=== PATIENT | female | born 2000 | race Caucasian/White ===

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

== ENCOUNTER 2018-01-24 07:18 | Emergency (ER) | payer OTHER ==
[2018-01-24] MEDS ORDERED: NS 0.9% 1000 ML* 1,000 ML IV ONE (07:32)
--- NOTE | 2018-01-24 07:50 | ED ---
Syncope/Near Syncope - HPI Summary HPI Summary: Pt is 17 y/o F who presents to ED s/p syncope this morning. For the past week she has been very stressed and on average slept 3 hours a night this week. Last night she also got about 3 hours of sleep and went to bed feeling out of it and notes that her blood sugar was high. This morning she was walking in her living room when she felt sweaty and like her heart was racing. Pt lost consciousness for an undetermined time since the episode was unwitnessed. She woke up on the floor on her right side and checked her blood sugar at this time and notes that it was 99. Pt also notes headache, blurred vision, dizziness, and chills. Denies fever or chest pain. She is not sure if she injured her head from the fall but denies external head injury. PMHx of syncopal episode once last year and 5 concussions from soccer. - History Of Current Complaint Chief Complaint: EDSyncope Time Seen by Provider: 01/24/18 07:29 Hx Obtained From: Patient Onset/Duration: Sudden Onset, Resolved Context: Unwitnessed, Loss Of Consciousness Associated Head Trauma: No Associated Signs And Symptoms: Chest Pain - NEGATIVE, Diaphoresis, Dizzy, Head Trauma (Recent) - NEGATIVE, Headache - Allergies/Home Medications Allergies/Adverse Reactions: Allergies Allergy/AdvReac Type Severity Reaction Status Date / Time No Known Allergies Allergy Verified 07/18/17 08:54 PMH/Surg Hx/FS Hx/Imm Hx Endocrine/Hematology History: Reports: Hx Diabetes - Type 1. Well Controlled Respiratory History: Reports: Hx Pneumonia Sensory History: Denies: Hx Contacts or Glasses Neurological History: Denies: Hx Headaches, Hx Seizures Psychiatric History: Denies: Hx Substance Abuse Infectious Disease History: No Infectious Disease History: Denies: Traveled Outside the [place] in Last 30 Days - Family History Known Family History: Positive: Other - Cancer - Social History Alcohol Use: Occasionally Substance Use Type: Reports: None Smoking Status (MU): Never Smoked Tobacco Review of Systems Positive: Chills, Skin Diaphoresis. Negative: Fever Positive: Blurred Vision Negative: Chest Pain Positive: Headache, Syncope All Other Systems Reviewed And Are Negative: Yes Physical Exam - Summary Physical Exam Summary: Appearance: Well appearing, no pain distress Skin: warm, dry, reflects adequate perfusion Head/face: normal Eyes: EOMI, CORY ENT: mucous membranes moist Neck: supple, non-tender Respiratory: CTA, breath sounds present Cardiovascular: RRR, pulses symmetrical Abdomen: non-tender, soft Bowel Sounds: present Musculoskeletal: normal, strength/ROM intact Neuro: normal, sensory motor intact, A&Ox3 Triage Information Reviewed: Yes Vital Signs On Initial Exam: Initial Vitals Temp Pulse Resp BP Pulse Ox 98.4 F 80 17 113/77 98 01/24/18 07:24 01/24/18 07:24 01/24/18 07:24 01/24/18 07:24 01/24/18 07:24 Vital Signs Reviewed: Yes Diagnostics - Vital Signs Vital Signs Temp Pulse Resp BP Pulse Ox 01/24/18 07:24 98.4 F 80 17 113/77 98 - Laboratory Result Diagrams: 01/24/18 07:51 01/24/18 07:53 Lab Statement: Any lab studies that have been ordered have been reviewed, and results considered in the medical decision making process. - EKG 7:59 Cardiac Rate: NL - 66 bpm EKG Rhythm: Sinus Rhythm EKG Interpretation: Normal axis, normal interval Course/Dx Course Of Treatment: Type I diabetic who has not been sleeping or hydrating well presents with syncope. EKG with intervals all normal. Blood sugar well controlled. Stressful time in school likely causative. History of similar in the past. No high-risk features. Discharged here without orthostasis. [facility]- [facility]. - Diagnoses Differential Diagnosis/HQI/PQRI: Positive: Dysrhythmia, Hyperventilation, Hypoglycemia, Hypovolemia, Metabolic Reaction, Vasovagal Episode Provider Diagnoses: Syncope, History of type 1 diabetes mellitus, Fatigue Discharge - Sign-Out/Discharge Documenting (check all that apply): Patient Departure - Discharge - Discharge Plan Condition: Improved Disposition: HOME Patient Education Materials: Syncope (ED) Referrals: [facility] - Nguyễn GREGG [Medical Doctor] - Additional Instructions: Stay well-hydrated. Get plenty of sleep. Eat regularly and check her sugars frequently. Vitamin C may help. Return if worse, new symptoms or other concerns as discussed. Follow-up with Critical access hospital. - Billing Disposition and Condition Condition: IMPROVED Disposition: Home - Attestation Statements Document Initiated by Scribe: Yes Documenting Scribe: Luke White Provider For Whom Scribe is Documenting (Include Credential): Dr. Oumar Tejada MD Scribe Attestation: I, Luke White, scribed for Dr. Oumar Tejada MD on 01/24/18 at 1727. Scribe Documentation Reviewed: Yes Provider Attestation: The documentation as recorded by the scribe, Luke White accurately reflects the service I personally performed and the decisions made by me, Dr. Oumar Tejada MD
[2018-01-24 08:06] LABS: Hematocrit 38 % (35-47); Hemoglobin 12.9 g/dl (12.0-16.0); Mean Corpuscular HGB Conc 34 g/dl (31-36); Mean Corpuscular Hemoglobin 32 pg (27-31); Mean Corpuscular Volume 92 fL (80-97); Mean Platelet Volume 8.9 um3 (7.4-10.4); Platelet Count 294 10^3/ul (150-450); Red Blood Count 4.06 10^6/ul (4.00-5.40); Red Cell Distribution Width 12 % (10.5-15)
[2018-01-24 08:30] LABS: EGFR Non-African American 88.6 (>60)
[2018-01-24 08:38] LABS: ABS Basophils 0.1 10^3/ul (0-0.2); ABS Eosinophils 0.4 10^3/ul (0-0.6); ABS Monocytes 0.5 10^3/ul (0-0.8); ABS Nucleated RBC 0 10^3/ul; Eosinophil % 6.5 % (0-6); Nucleated Red Blood Cells % 0.2
[2018-01-24 09:29] VITALS: BP 110/76
== END 2018-01-24 09:30 | disposition home or self-care (01) ==
LOC: ED 07:18
DX: R55 Syncope and collapse (principal); R53.83 Other fatigue; E10.9 Type 1 diabetes mellitus without complications
CPT/HCPCS: 36415; 80048; 80320; 84702; 85025; 93005; 96360; 99282; G0480

== ENCOUNTER 2018-05-03 00:42 | Emergency (ER) | payer OTHER ==
[2018-05-03] MEDS ORDERED: Nicotine Inhaler* 10 MG AMP INH PRN (00:55)
[2018-05-03] MEDS ORDERED: NS 0.9% 1000 ML** 2,000 ML IV ONE (00:56)
[2018-05-03] MEDS ORDERED: Ondansetron INJ* 2 MG/ML VIAL IV ONE (00:56)
[2018-05-03 01:12] LABS: ABS Basophils 0.1 10^3/ul (0-0.2); ABS Eosinophils 0.6 10^3/ul (0-0.6); ABS Lymphocytes 4.1 10^3/ul (1.0-4.8); ABS Monocytes 0.6 10^3/ul (0-0.8); ABS Neutrophils 2.6 10^3/ul (1.5-7.7); ABS Nucleated RBC 0 10^3/ul; Eosinophil % 7.5 %; Hematocrit 39 % (35-47); Hemoglobin 12.9 g/dl (12.0-16.0); Lymphocyte % 51.5 %; Mean Corpuscular HGB Conc 34 g/dl (31-36); Mean Corpuscular Hemoglobin 31 pg (27-31); Mean Corpuscular Volume 94 fL (80-97); Mean Platelet Volume 8.7 fL (7.4-10.4); Nucleated Red Blood Cells % 0.1; Platelet Count 304 10^3/ul (150-450); Red Blood Count 4.12 10^6/ul (4.00-5.40); Red Cell Distribution Width 13 % (10.5-15)
[2018-05-03 01:30] LABS: Alcohol 230 mg/dL (<10); Salicylate < 2.50 mg/dL (<30)
[2018-05-03 01:31] LABS: ALT 10 U/L (7-52); AST 14 U/L (13-39); Albumin 4.6 g/dL (3.2-5.2); Albumin/Globulin Ratio 1.6 (1-3); Alkaline Phosphatase 83 U/L (34-104); Anion Gap 13 mmol/L (2-11); BUN/Creatinine Ratio 7.4 (8-20); Blood Urea Nitrogen 6 mg/dL (6-24); CO2 Carbon Dioxide 21 mmol/L (22-32); Calcium 9.6 mg/dL (8.6-10.3); Chloride 103 mmol/L (101-111); EGFR African American 109.1 (>60); EGFR Non-African American 90.1 (>60); Globulin 2.9 g/dL (2-4); Glucose 274 mg/dL (70-100); Potassium 2.8 mmol/L (3.5-5.0); Sodium 137 mmol/L (135-145); Total Protein 7.5 g/dL (6.4-8.9)
[2018-05-03 01:45] LABS: TSH (Thyroid Stimulating Horm) 3.36 mcIU/mL (0.34-5.60)
[2018-05-03] MEDS ORDERED: Potassium Chlor TAB* 20 MEQ TAB.ER PO ONE (01:52)
[2018-05-03] MEDS ORDERED: Insulin REGULAR(*) 1 UNITS UNIT SUBCUT ONE (02:05)
[2018-05-03] MEDS ORDERED: Mouth Piece, Nicotine* 1 EACH CARTRIDGE INH ONE (03:00)
[2018-05-03 05:26] VITALS: BP 104/50
[2018-05-03 06:26] LABS: BUN/Creatinine Ratio 8.2 (8-20); Calcium 8.8 mg/dL (8.6-10.3); EGFR Non-African American 101.6 (>60); Potassium 4.7 mmol/L (3.5-5.0)
--- NOTE | 2018-05-03 08:03 | ED ---
Substance Abuse/Use - HPI Summary HPI Summary: Pt is 18 y/o F and is brought to ED by her friends due to her alcohol intoxication. They reported she threw up in the car and that pt has diabetes. Pt is able to report she has no abdominal pain. Complete HPI is unobtainable due to level 5 caveat of altered mental status. - History Of Current Complaint Chief Complaint: EDSubstanceAbuse Stated Complaint: ETOH Time Seen by Provider: 05/03/18 01:52 Hx Obtained From: Patient, Other: - friends Hx From Patient Unobtainable Due To: Altered Mental Status Ingestion History: Type/Name Of Drug - Alcohol Aggravating Factor(s): Nothing Alleviating Factor(s): Nothing - Allergies/Home Medications Allergies/Adverse Reactions: Allergies Allergy/AdvReac Type Severity Reaction Status Date / Time No Known Allergies Allergy Verified 05/03/18 00:46 PMH/Surg Hx/FS Hx/Imm Hx Endocrine/Hematology History: Reports: Hx Diabetes - Type 1. Well Controlled Respiratory History: Reports: Hx Pneumonia Sensory History: Denies: Hx Contacts or Glasses Opthamlomology History: Denies: Hx Contacts or Glasses Neurological History: Denies: Hx Headaches, Hx Seizures Psychiatric History: Denies: Hx Substance Abuse Infectious Disease History: No Infectious Disease History: Denies: Traveled Outside the [place] in Last 30 Days - Family History Known Family History: Positive: Other - Cancer Negative: Cardiac Disease - Social History Alcohol Use: Occasionally Substance Use Type: Reports: None Smoking Status (MU): Never Smoked Tobacco Review of Systems - ROS Summary Review of Systems Summary: Complete ROS unobtainable due to level 5 caveat of altered mental status. Negative: Abdominal Pain All Other Systems Reviewed And Are Negative: No Physical Exam - Summary Physical Exam Summary: General: This is a well-developed, well- nourished young woman lying on the stretcher in no apparent distress. The patient appears intoxicated and is quite anxious. Neck: No obvious swellings. Lungs: There are no signs of respiratory distress. Coronary: Peripheral perfusion is good. Abdomen: The abdomen appears normal and is nondistended. Genitourinary: Deferred Back: Good range of motion is observed. Extremities: Good range of motion was observed in all 4 extremities. There is no sign of any trauma to the extremities. Neurologic: The patient is awake and alert, speech is slurred and conversation is appropriate. Psychiatric: The patients affect is felt to be normal and appropriate given her degree of intoxication. There is no sign of any hallucinations or delusions , or any other signs of psychosis. Triage Information Reviewed: Yes Vital Signs On Initial Exam: Initial Vitals Temp Pulse Resp BP Pulse Ox 96.0 F 91 18 125/82 99 05/03/18 00:44 05/03/18 00:44 05/03/18 00:44 05/03/18 00:44 05/03/18 00:44 Vital Signs Reviewed: Yes Diagnostics - Vital Signs Vital Signs Temp Pulse Resp BP Pulse Ox 05/03/18 07:01 98.6 F 76 16 104/50 97 05/03/18 05:00 76 97 05/03/18 04:47 67 104/50 98 05/03/18 04:17 79 95/44 98 05/03/18 04:00 76 94 05/03/18 03:47 75 99/46 95 05/03/18 03:17 100 106/55 99 05/03/18 03:00 81 99 05/03/18 02:47 95 106/51 99 05/03/18 02:18 119/58 05/03/18 02:16 94 99 05/03/18 00:44 96.0 F 91 18 125/82 99 - Laboratory Lab Results: Lab Results 05/03/18 05/03/18 05/03/18 Range/Units 01:00 01:01 01:01 WBC 8.0 (3.5-10.8) 10^3/ul RBC 4.12 (4.00-5.40) 10^6/ul Hgb 12.9 (12.0-16.0) g/dl Hct 39 (35-47) % MCV 94 (80-97) fL MCH 31 (27-31) pg MCHC 34 (31-36) g/dl RDW 13 (10.5-15) % Plt Count 304 (150-450) 10^3/ul MPV 8.7 (7.4-10.4) fL Neut % (Auto) 32.4 % Lymph % (Auto) 51.5 % [place] % (Auto) 7.7 % Eos % (Auto) 7.5 % Baso % (Auto) 0.9 % Absolute Neuts (auto) 2.6 (1.5-7.7) 10^3/ul Absolute Lymphs (auto) 4.1 (1.0-4.8) 10^3/ul Absolute Monos (auto) 0.6 (0-0.8) 10^3/ul Absolute Eos (auto) 0.6 (0-0.6) 10^3/ul Absolute Basos (auto) 0.1 (0-0.2) 10^3/ul Absolute Nucleated RBC 0 10^3/ul Nucleated RBC % 0.1 Sodium 137 (135-145) mmol/L Potassium 2.8 L (3.5-5.0) mmol/L Chloride 103 (101-111) mmol/L Carbon Dioxide 21 L (22-32) mmol/L Anion Gap 13 H (2-11) mmol/L BUN 6 (6-24) mg/dL Creatinine 0.81 (0.51-0.95) mg/dL Est GFR ( Amer) 109.1 (>60) Est GFR (Non-Af Amer) 90.1 (>60) BUN/Creatinine Ratio 7.4 L (8-20) Glucose 274 H (70-100) mg/dL POC Glucose (mg/dL) 265 H (70-100) mg/dL Calcium 9.6 (8.6-10.3) mg/dL Total Bilirubin 0.20 (0.2-1.0) mg/dL AST 14 (13-39) U/L ALT 10 (7-52) U/L Alkaline Phosphatase 83 (34-104) U/L Total Protein 7.5 (6.4-8.9) g/dL Albumin 4.6 (3.2-5.2) g/dL Globulin 2.9 (2-4) g/dL Albumin/Globulin Ratio 1.6 (1-3) TSH 3.36 (0.34-5.60) mcIU/mL Salicylates < 2.50 (<30) mg/dL Serum Alcohol 230 H (<10) mg/dL 05/03/18 05/03/18 05/03/18 Range/Units 03:12 05:16 05:56 WBC (3.5-10.8) 10^3/ul RBC (4.00-5.40) 10^6/ul Hgb (12.0-16.0) g/dl Hct (35-47) % MCV (80-97) fL MCH (27-31) pg MCHC (31-36) g/dl RDW (10.5-15) % Plt Count (150-450) 10^3/ul MPV (7.4-10.4) fL Neut % (Auto) % Lymph % (Auto) % [place] % (Auto) % Eos % (Auto) % Baso % (Auto) % Absolute Neuts (auto) (1.5-7.7) 10^3/ul Absolute Lymphs (auto) (1.0-4.8) 10^3/ul Absolute Monos (auto) (0-0.8) 10^3/ul Absolute Eos (auto) (0-0.6) 10^3/ul Absolute Basos (auto) (0-0.2) 10^3/ul Absolute Nucleated RBC 10^3/ul Nucleated RBC % Sodium 139 (135-145) mmol/L Potassium 4.7 D (3.5-5.0) mmol/L Chloride 108 (101-111) mmol/L Carbon Dioxide 24 (22-32) mmol/L Anion Gap 7 (2-11) mmol/L BUN 6 (6-24) mg/dL Creatinine 0.73 (0.51-0.95) mg/dL Est GFR ( Amer) 123.0 (>60) Est GFR (Non-Af Amer) 101.6 (>60) BUN/Creatinine Ratio 8.2 (8-20) Glucose 192 H (70-100) mg/dL POC Glucose (mg/dL) 266 H 154 H (70-100) mg/dL Calcium 8.8 (8.6-10.3) mg/dL Total Bilirubin (0.2-1.0) mg/dL AST (13-39) U/L ALT (7-52) U/L Alkaline Phosphatase (34-104) U/L Total Protein (6.4-8.9) g/dL Albumin (3.2-5.2) g/dL Globulin (2-4) g/dL Albumin/Globulin Ratio (1-3) TSH (0.34-5.60) mcIU/mL Salicylates (<30) mg/dL Serum Alcohol (<10) mg/dL Result Diagrams: 05/03/18 01:01 05/03/18 05:56 Lab Statement: Any lab studies that have been ordered have been reviewed, and results considered in the medical decision making process. Course/Dx - Course Course Of Treatment: Pt is 17 y/o M brought by ambulance to ED due to alcohol intoxication. He reports having drank vodka and fireball. Complete HPI and Hx unobtainable due to level 5 caveat of altered mental status. After rest, pt feels better and is discharged home. - Diagnoses Provider Diagnoses: Alcohol abuse, Hypokalemia, Type 1 diabetes Discharge - Sign-Out/Discharge Documenting (check all that apply): Patient Departure - Discharge - Discharge Plan Condition: Good Disposition: HOME Patient Education Materials: Hypokalemia (ED), Alcohol Intoxication (ED) Referrals: [facility] [Outside] - If Needed Additional Instructions: You can resume your normal diabetic care/insulin now. Be careful with alcohol! - Billing Disposition and Condition Condition: GOOD Disposition: Home - Attestation Statements Document Initiated by Scribe: Yes Documenting Scribe: Luke White Provider For Whom Scribe is Documenting (Include Credential): Dr. Ethan Elder MD Scribe Attestation: I, Luke White, scribed for Dr. Ethan Elder MD on 05/04/18 at 0203. Scribe Documentation Reviewed: Yes Provider Attestation: The documentation as recorded by the scribe, Luke White accurately reflects the service I personally performed and the decisions made by me, Dr. Ethan Elder MD Status of Scribe Document: Viewed
== END 2018-05-03 07:04 | disposition home or self-care (01) ==
LOC: ED 00:42
DX: F10.129 Alcohol abuse with intoxication, unspecified (principal); E23.2 Diabetes insipidus
CPT/HCPCS: 36415; 80048; 80053; 80320; 80329; 84443; 85025; 96361; 96372; 96374; 99284; A9270-GY; G0480; J2405